=== PATIENT | female | born 1970 | race Hispanic/Latino ===

== ENCOUNTER 2017-04-15 12:16 | Emergency (ER) | payer MEDICAID, OTHER ==
[2017-04-15 13:46] LABS: RAPID GROUP A STREP NEGATIVE (NEGATIVE)
== END 2017-04-15 14:00 | disposition home or self-care (01) ==
LOC: EDH 12:16
DX: J06.9 Acute upper respiratory infection, unspecified (principal); E07.9 Disorder of thyroid, unspecified; Z88.0 Allergy status to penicillin; Z98.890 Other specified postprocedural states
CPT/HCPCS: 87804; 87880